=== PATIENT | male | born 1950 | race Caucasian/White ===

== ENCOUNTER 2020-01-21 09:04 | Day surgery (SDC) | payer MEDICARE, OTHER ==
[~2020-01-21 09:04] MED LIST: DIPRIVAN 200 MG/20 ML IV ONE; Ketamine HCl 50 MG/ML ONE
[2020-01-21] MEDS ORDERED: Depo-Medrol 40 MG/ML IM ONE (09:05)
[2020-01-21] MEDS ORDERED: BUPIVACAINE 0.5% VIAL IJ ONE (09:05)
[2020-01-21] MEDS ORDERED: Lactated Ringers 1,000 ML IV ONE (09:05)
--- NOTE | 2020-01-21 11:41 | XRAY ---
Indication: Bilateral SI joint injection. Intraoperative fluoroscopy was provided for 18 seconds. 4 digital spot images submitted for interpretation demonstrates posterior needle tip projecting over the inferior left and right SI joint. Correlate with intraoperative findings/report.
--- NOTE | 2020-01-21 11:43 | XRAY ---
18 seconds fluoroscopy time in surgery for bilateral SI joint injections.
== END 2020-01-21 10:40 | disposition home or self-care (01) ==
LOC: SDC-PAIN 09:04
PROVIDERS: ATTEND Psychiatry & Neurology Pain Medicine
DX: M46.1 Sacroiliitis, not elsewhere classified (principal); I10 Essential (primary) hypertension; E11.9 Type 2 diabetes mellitus without complications; N40.0 Benign prostatic hyperplasia without lower urinary tract symptoms; Z79.899 Other long term (current) drug therapy
CPT/HCPCS: 27096; 72202; 77002; 82962; J1030; J2704; G0260

== ENCOUNTER 2020-03-03 09:00 | Day surgery (SDC) | payer MEDICARE, OTHER ==
[2020-03-03] MEDS ORDERED: BUPIVACAINE 0.5% VIAL IJ ONE (09:01)
[2020-03-03] MEDS ORDERED: Depo-Medrol 40 MG/ML IM ONE (09:01)
[2020-03-03] MEDS ORDERED: Ketamine HCl 50 MG/ML ONE (09:58)
[2020-03-03] MEDS ORDERED: DIPRIVAN 200 MG/20 ML IV ONE (09:58)
--- NOTE | 2020-03-03 11:09 | XRAY ---
Indication: Left knee injection. Intraoperative fluoroscopy was provided for 7 seconds. Single digital spot image submitted for interpretation demonstrates needle tip projecting over the left femur intercondylar notch. Small amount of contrast injected for needle tip placement. Correlate with intraoperative findings/report.
--- NOTE | 2020-03-03 11:12 | XRAY ---
7 seconds fluoroscopy time in surgery for left intra-articular knee injection.
--- NOTE | 2020-03-03 11:19 | XRAY ---
Indication: Right knee injection. Intraoperative fluoroscopy was provided for 4 seconds. Single digital spot image submitted for interpretation demonstrates needle tip projecting over the right femur intercondylar notch. Small amount of contrast injected for needle tip placement. Correlate with intraoperative findings/report.
--- NOTE | 2020-03-03 11:22 | XRAY ---
4 seconds fluoroscopy time in surgery for right intra-articular knee injection.
[2020-03-03] MEDS ORDERED: Lactated Ringers 1,000 ML IV ONE (15:13)
== END 2020-03-03 10:25 | disposition home or self-care (01) ==
LOC: SDC-PAIN 09:00
PROVIDERS: ATTEND Psychiatry & Neurology Pain Medicine
DX: M17.0 Bilateral primary osteoarthritis of knee (principal); E11.9 Type 2 diabetes mellitus without complications; I10 Essential (primary) hypertension; N40.0 Benign prostatic hyperplasia without lower urinary tract symptoms; Z79.899 Other long term (current) drug therapy
CPT/HCPCS: 20610; 73560; 77002; 82947; 82962; J1030; J2704; Q9966

== ENCOUNTER 2020-08-25 07:45 | Day surgery (SDC) | payer MEDICARE, OTHER ==
[2020-08-25] MEDS ORDERED: Lactated Ringers 1,000 ML IV ONE (15:59)
== END 2020-08-25 08:30 | disposition home or self-care (01) ==
LOC: SDC-PAIN 07:45
PROVIDERS: ATTEND Psychiatry & Neurology Pain Medicine
DX: Z53.09 Procedure and treatment not carried out because of other contraindication (principal); E11.649 Type 2 diabetes mellitus with hypoglycemia without coma; M25.562 Pain in left knee; M25.561 Pain in right knee
CPT/HCPCS: 82947

== ENCOUNTER 2020-11-10 08:57 | Day surgery (SDC) | payer MEDICARE, OTHER ==
[2020-11-10] MEDS ORDERED: Depo-Medrol 40 MG/ML IM ONE (08:58)
[2020-11-10] MEDS ORDERED: BUPIVACAINE 0.5% VIAL IJ ONE (08:58)
[2020-11-10] MEDS ORDERED: DIPRIVAN 200 MG/20 ML IV ONE (10:24)
--- NOTE | 2020-11-10 12:40 | XRAY ---
Indication: Right knee injection. Intraoperative fluoroscopy provided for 5 seconds. Single digital spot image submitted for interpretation demonstrates needle tip projecting over the right femur intercondylar notch. Small amount of contrast injected for needle tip placement. Correlate with intraoperative findings/report.
--- NOTE | 2020-11-10 12:50 | XRAY ---
Indication: Left knee injection. Intraoperative fluoroscopy provided for 4 seconds. Single digital spot image submitted for interpretation demonstrates needle tip projecting over the left femur intercondylar notch. Small amount of contrast injected for needle tip placement. Correlate with intraoperative findings/report.
--- NOTE | 2020-11-10 13:21 | XRAY ---
4 seconds fluoroscopy time in surgery for intra-articular injection of the left knee.
--- NOTE | 2020-11-10 13:30 | XRAY ---
5 seconds fluoroscopy time in surgery for intra-articular injection of the right knee.
[2020-11-10] MEDS ORDERED: Lactated Ringers 1,000 ML IV ONE (15:52)
== END 2020-11-10 11:12 | disposition home or self-care (01) ==
LOC: SDC-PAIN 08:57
PROVIDERS: ATTEND Psychiatry & Neurology Pain Medicine
DX: M17.0 Bilateral primary osteoarthritis of knee (principal); E11.9 Type 2 diabetes mellitus without complications; Z79.899 Other long term (current) drug therapy
CPT/HCPCS: 20610; 73560; 77002; 82947; J1030; J2704; Q9966

== ENCOUNTER 2021-03-09 08:42 | Day surgery (SDC) | payer MEDICARE ==
[2021-03-09] MEDS ORDERED: Depo-Medrol 40 MG/ML IM ONE (08:43)
[2021-03-09] MEDS ORDERED: BUPIVACAINE 0.5% VIAL IJ ONE (08:43)
[2021-03-09] MEDS ORDERED: Lactated Ringers 1,000 ML IV ONE (09:22)
[2021-03-09] MEDS ORDERED: DIPRIVAN 200 MG/20 ML IV ONE (10:20)
--- NOTE | 2021-03-09 12:37 | XRAY ---
Indication: Bilateral SI joint injection. Intraoperative fluoroscopy provided for 19 seconds. 4 digital spot images submitted for interpretation demonstrates posterior needle tip projecting over the inferior left and right SI joint. Correlate with intraoperative findings/report.
--- NOTE | 2021-03-09 12:49 | XRAY ---
19 seconds fluoroscopy time in surgery for bilateral SI joint injections.
== END 2021-03-09 11:05 | disposition home or self-care (01) ==
LOC: SDC-PAIN 08:42
PROVIDERS: ATTEND Psychiatry & Neurology Pain Medicine
DX: M46.1 Sacroiliitis, not elsewhere classified (principal); Z79.891 Long term (current) use of opiate analgesic; E11.8 Type 2 diabetes mellitus with unspecified complications; Z79.84 Long term (current) use of oral hypoglycemic drugs
CPT/HCPCS: 27096; 72202; 77002; 82947; G0260; J1030; J2704

== ENCOUNTER 2022-07-05 09:51 | Day surgery (SDC) | payer MEDICARE ==
[2022-07-05] MEDS ORDERED: Depo-Medrol 40 MG/ML IM ONE (09:52)
[2022-07-05] MEDS ORDERED: BUPIVACAINE 0.5% VIAL IJ ONE (09:52)
[2022-07-05] MEDS ORDERED: DIPRIVAN 200 MG/20 ML IV ONE ×2 (12:19→12:21)
--- NOTE | 2022-07-05 13:28 | XRAY ---
Indication: Bilateral SI joint injection. Intraoperative fluoroscopy provided for 18 seconds. 4 digital spot images submitted for interpretation demonstrates posterior needle tip projecting over the left and right SI joint. Correlate with intraoperative findings/report.
--- NOTE | 2022-07-05 13:32 | XRAY ---
18 seconds of fluoroscopy was used in surgery for a bilateral sacroiliac joint injection.
[2022-07-05] MEDS ORDERED: Lactated Ringers 1,000 ML IV ONE (15:28)
== END 2022-07-05 12:55 | disposition home or self-care (01) ==
LOC: SDC-PAIN 09:51
PROVIDERS: ATTEND Psychiatry & Neurology Pain Medicine
DX: M46.1 Sacroiliitis, not elsewhere classified (principal); E11.9 Type 2 diabetes mellitus without complications; Z79.899 Other long term (current) drug therapy
CPT/HCPCS: 01992; 27096; 72202; 77002; 82947; 99100; G0260; J1030; J2704

== ENCOUNTER 2023-02-21 08:46 | Day surgery (SDC) | payer MEDICARE ==
[2023-02-21] MEDS ORDERED: Depo-Medrol 40 MG/ML IM ONE (08:47)
[2023-02-21] MEDS ORDERED: Sodium Chloride 0.9(Preservative Free) 10 ML IJ ONE (08:47)
[2023-02-21] MEDS ORDERED: DIPRIVAN 200 MG/20 ML IV ONE (10:31)
[2023-02-21] MEDS ORDERED: Lactated Ringers 1,000 ML IV ONE (11:13)
--- NOTE | 2023-02-21 11:26 | XRAY ---
Indication: Left L4-S1 transforaminal JEANIE. Intraoperative fluoroscopy provided for 29 seconds. 4 digital spot image submitted for interpretation demonstrates posterior needle tips projecting over the expected left L4 and L5 nerve roots. Small amount of contrast injected for needle tip placement. Correlate with intraoperative findings/report.
--- NOTE | 2023-02-21 12:12 | XRAY ---
29 seconds of fluoroscopy was used in surgery for a left L4-S1 transforaminal JEANIE.
== END 2023-02-21 10:55 | disposition home or self-care (01) ==
LOC: SDC-PAIN 08:46
PROVIDERS: ATTEND Psychiatry & Neurology Pain Medicine
DX: M54.16 Radiculopathy, lumbar region (principal); E11.9 Type 2 diabetes mellitus without complications; Z79.899 Other long term (current) drug therapy
CPT/HCPCS: 64483; 64484; 72100; 77003; 82947; J1030; J2704; Q9966

== ENCOUNTER 2024-04-09 07:09 | Day surgery (SDC) | payer MEDICARE ==
[2024-04-09] MEDS ORDERED: Decadron 4 MG INJ IV ONE (07:10)
[2024-04-09] MEDS ORDERED: Sodium Chloride 0.9(Preservative Free) 10 ML IJ ONE (07:10)
[2024-04-09] MEDS ORDERED: DIPRIVAN 200 MG/20 ML IV ONE (08:36)
--- NOTE | 2024-04-09 10:11 | XRAY ---
Indication: Right L4-S1 transforaminal JEANIE. Intraoperative fluoroscopy provided for 31 seconds. 6 digital spot image submitted for interpretation demonstrates posterior needle tips projecting over expected right L4 and L5 nerve roots. Small amount of contrast injected for needle tip placement. Correlate with intraoperative findings/report.
--- NOTE | 2024-04-09 11:01 | XRAY ---
31 seconds of fluoroscopy was used in surgery for a right L4-S1 transforaminal JEANIE.
== END 2024-04-09 09:25 | disposition home or self-care (01) ==
LOC: SDC-PAIN 07:09
PROVIDERS: ATTEND Psychiatry & Neurology Pain Medicine
DX: M54.16 Radiculopathy, lumbar region (principal); E11.9 Type 2 diabetes mellitus without complications
CPT/HCPCS: 72100; 77003; 82947; J1100; J2704

== ENCOUNTER 2024-08-07 07:54 | Day surgery (SDC) | payer MEDICARE ==
[2024-08-07] MEDS ORDERED: dexAMETHasone sodium phosphate IJ ONE (07:55)
[2024-08-07] MEDS ORDERED: Sodium Chloride 0.9(Preservative Free) 10 ML IJ ONE (07:55)
[2024-08-07] MEDS ORDERED: Lactated Ringers 500 ML IV ONE (08:26)
[2024-08-07] MEDS ORDERED: propofoL IV ONE (09:48)
--- NOTE | 2024-08-07 19:25 | XRAY ---
40 seconds of fluoroscopy was used in surgery for a left L4-S1 transforaminal JEANIE.
--- NOTE | 2024-08-07 19:37 | XRAY ---
Indication: Left L4-S1 transforaminal JEANIE. Intraoperative fluoroscopy provided for 40 seconds. 6 digital spot image submitted for interpretation demonstrates posterior needle tips projecting over expected left L4 and L5 nerve roots. Small amount of contrast injected for needle tip placement. Correlate with intraoperative findings/report.
== END 2024-08-07 10:30 | disposition home or self-care (01) ==
LOC: SDC-PAIN 07:54
PROVIDERS: ATTEND Psychiatry & Neurology Pain Medicine
DX: M54.16 Radiculopathy, lumbar region (principal); E11.9 Type 2 diabetes mellitus without complications
CPT/HCPCS: 64483; 64484; 72100; 82947; 93005; J1100; J2704; Q9966